=== PATIENT | male | born 1955 | race Caucasian/White ===

== ENCOUNTER 2022-12-02 14:31 | Outpatient (CLI) | payer MEDICARE, BC, SELFPAY ==
--- OUTSIDE RECORDS SUMMARY | 2022-12-02 14:33 | XMS_ITS | Patient Health Record ---
Author Name Unknown Organization [facility] Address [address] [place] [address] Care Team Providers Care Cloth Bolt Bander Name Role Phone PCP, Does Not Have a Primary Care Provider Mansi Reinoso Unavailable [phone] John Paul Sheehan Unavailable [phone] ALLERGIES Allergen (clinical drug ingredient) Drug/Non Drug Allergy documented on EMR Reaction Allergy Type Onset Date Status amoxicillin Amoxicillin hives Drug Allergy Act misha RESULTS Component Value Reference Range Notes COVID-19 Molecular Nucleic A jordyn Amplification Test (NAAT) Reviewed date:12/28/2021 10:37:58 AM Interpretation:Negative Performing Lab: Notes/Report: Negative COVID19 Negative COVID-19 RT- PCR Reviewed date:03/26/2022 10:30:05 AM Interpretation:Negative Performing Lab: Notes/Report: Negative COVID19 Negative COVID-19 RT- PCR Reviewed date:06/10/2022 11:14:31 AM Interpretation:Negative Performing Lab: Notes/Report: Negative COVID19 REASON FOR REFERRAL No Information MEDICATIONS Medication SIG (Take, Route, Fr equency, Duration) Notes Start Date End Date Status RABEprazole Sodium A ctive Atorvastatin Calcium Active SOCIAL HISTORY Tobacco Use: Social History Observation Description Date Details (start date - stop date) Never Smoker NA - NA Sex Assigned At : Social History Observation Description Sex Assigned At Unknown Tobacco Use/Smoking Question Answer Notes You are a nonsmoker VITAL SIGNS Heart Rate 67 /min 06/10/2022 Temperature 97.7 degrees Fahrenheit 06/10/2022 Respiratory Rate 18 /min 06/10/2022 Blood pressure diastolic 73 mm Hg 06/10/2022 Oximetry 99 % 06/10/2022 Height 67 in 06/10/2022 Blood pressure systolic 115 mm Hg 06/10/2022 Weight 160 lbs 06/10/2022 BMI 25.06 kg/m2 06/10/2022 Encounters Encounter Location Date Provider Diagnosis [address] [address] 12/28/2021 Mansi Solomon Encounter for laboratory testing for COVID-19 virus [address] [address] 03/26/2022 John Paul Sheehan Encounter for laboratory testing for COVID-19 virus Z20.822 and Acute URI J06.[address] [address] 06/10/2022 Mansi Solomon Encounter for laboratory testing for COVID-19 virus Z20.822 and Acute URI J06.9 ASSESSMENTS Encounter Date Diagnosis Assessment Notes Treatment Notes Treatment Clinical Notes 12/28/2021 Encounter for laboratory testing for COVID-19 virus (ICD-10 - Z20.822) 03/26/2022 Encounter for laboratory testing for COVID-19 virus (ICD-10 - Z20.822) Quarantine starts on the first day of symptom onset or on date of positive test if you are asymptomatic. Quarantine only ends if symptoms are improved, and you have had NO fever. A known COVID exposure is being within 6 feet of someone known to have COVID for at least 15 minutes. People with COVID may be contagious 48 hours before they get sick. Positive Results The virus was found in the nasal passage, and you are infected with COVID. You should: 1. Stay home except to get medical care. 2. Isolate yourself from other people for at least 5 days (check with your local [facility] for specific guidelines). 3. Mask for an additional 5 days when around others. If you have not had improving symptoms or are still experiencing a fever, quarantine for 7-10 days is recommended. 4. Monitor your symptoms and if you have any or these emergency warning signs for COVID get medical attention immediately: Trouble breathing Persistent pain or pressure in the chest New confusion or inability to arouse Bluish lips or face When your quarantine is complete:If you have access to antigen tests, you should consider using them. With two sequential negative tests 48 hours apart, you may remove your mask sooner than day 10. If your antigen test results are positive, you may still be infectious. You should continue wearing a mask and wait at least 48 hours before taking another test. Continue taking antigen tests at least 48 hours apart until you have two sequential negative results. This may mean you need to continue wearing a mask and testing beyond day 10. Negative Results: The virus was not found in your nose. A negative result means you probably were not infected at the time your sample was collected. However, that does not mean you will not get sick. It is possible that you were very early in your infection when your sample was collected and that you could test positive later. Or you could be exposed later and then develop the illness. This means you could still spread the virus. Please continue to wear a mask, hand wash, and continue social distancing. Please contact your provider if you have new or worsening symptoms. Even with a NEGATIVE COVID test, if you were exposed it is recommended to mask for 10 days around others and get tested if symptoms develop. 06/10/2022 Acute URI (ICD-10 - J06.9) You have been diagnosed with a viral upper respiratory infection. These infections do not respond to antibiotics and resolve with supportive care. You should drink plenty of fluids and rest at home until you start feeling better. You can take an usck-rus-qwaoifh pain reliever/fever advertising campaign manager as directed on the bottle. You can additionally take an hdjq-lbs-xotcqvy cough suppressant (dextromethorphan) for your symptoms as needed. Most viral infections last 5 to 10 days. You may return to the clinic for any worsening symptoms. See your primary care doctor for symptoms that do not resolve within 10 days. If you develop any severe symptoms, such as trouble breathing, please proceed to the Emergency Room. The patient has symptoms of a viral URI. The patient is not ill-appearing. There is no evidence of stridor, hypoxia, abnormal pulmonary exam. I considered influenza, mononucleosis, mastoiditis, pneumonia, GABHS, sinusitis, ENGINE MONITOR, retropharyngeal abscess, meningitis, otitis media and externa, orbital cellulitis and other bacterial infxs but the hx, exam & data did not support the diagnoses. Also considered epiglottitis and deep tissue infection of the neck but palpation of the neck along with range of motion and no laryngeal tenderness makes this unlikely, patient''s voice also normal making these tissue infections unlikely. The pt was advised that some dzs present atypically & the pt was given explicit DC instructions. The initial nonuse of antibiotics was discussed. 06/10/2022 Encounter for laboratory testing for COVID-19 virus (ICD-10 - Z20.822) 03/26/2022 Acute URI (ICD-10 - J06.9) You may take an xjzc-xek-hhwavae pain reliever/fever advertising campaign manager for any fever/pain. You can also take an ekeq-dqf-uindfcu cough suppressant as needed for cough if one has not been prescribed. Your provider can recommend specific medications based on your medical history if needed. Return to the clinic or schedule a virtual visit if you require additional medical attention. Pt educated on the nature of the condition. Pt has s/sx of viral URI. RT PCR performed 12/28/2021 Other Negative Results The virus was not found in your nose. A negative result means you probably were not infected at the time your sample was collected. However, that does not mean you will not get sick. It is possible that you were very early in your infection when your sample was collected and that you could test positive later. Or you could be exposed later and then develop illness. In other words, a negative test result does not mean you won't get sick later. This means you could still spread the virus. Please continue to wear a mask, hand wash, and continue social distancing. The current outpatient treatment for COVD is supportive care. Please contact our provider if you have new or worsening symptoms. Even with a NEGATIVE COVID test quarantine is recommended for some individuals: - If you have had COVID exposure with or without symptoms AND your COVID vaccination is not up to date; it is recommended to quarantine for 5 days and then mask for an additional 5 days when around others. - If you have had COVID exposure AND vaccination to COVID is up to date, it is recommended to mask for 10 days when around others, and if symptoms develop consider testing, and quarantine for 5 days. - If you have symptoms highly concerning for COVID (fever/productive cough/loss of taste and smell) regardless of an exposure; it is recommended to follow plan above for positive tests. Your provider will advise you if you have any concerning symptoms or not 06/10/2022 Other Quarantine starts on the first day of symptom onset or on date of positive test if you are asymptomatic. Quarantine only ends if symptoms are improved, and you have had NO fever. COVID vaccination status is up to date it you have received 2 doses of Pfizer/Moderna in the last 6 months, 1 dose of the J&J in the last 2 months, or 2 weeks after a booster of any kind. A COVID infection in the past 90 days is considered an immune equivalent to vaccination. A known COVID exposure is being within 6 feet of someone known to have COVID for at least 15 minutes. People with COVID may be contagious 48 hours before they get sick. Positive Results The virus was found in the nasal passage, and you are infected with COVID. You should: 1. Stay home except to get medical care. 2. Isolate yourself from other people for at least 5 days (check with your local [facility] for specific guidelines). 3. Mask for an additional 5 days when around others. If you have not had improving symptoms or are still experiencing a fever, quarantine for 7-10 days is recommended. 4. Monitor your symptoms and if you have any or these emergency warning signs for COVID get medical attention immediately: Trouble breathing Persistent pain or pressure in the chest New confusion or inability to arouse Bluish lips or face 5. Care for COVID is supportive (over the counter medications, rest, and hydration) for mild and moderate symptoms. Repeat testing for positives is NOT recommended by the CDC for up to 90 days. Negative Results The virus was not found in your nose. A negative result means you probably were not infected at the time your sample was collected. However, that does not mean you will not get sick. It is possible that you were very early in your infection when your sample was collected and that you could test positive later. Or you could be exposed later and then develop illness. In other words, a negative test result does not mean you won't get sick later. This means you could still spread the virus. Please continue to wear a mask, hand wash, and continue social distancing. The current outpatient treatment for COVD is supportive care. Please contact our provider if you have new or worsening symptoms. Even with a NEGATIVE COVID test quarantine is recommended for some individuals: - If you have had COVID exposure with or without symptoms AND your COVID vaccination is not up to date; it is recommended to quarantine for 5 days and then mask for an additional 5 days when around others. - If you have had COVID exposure AND vaccination to COVID is up to date, it is recommended to mask for 10 days when around others, and if symptoms develop consider testing, and quarantine for 5 days. - If you have symptoms highly concerning for COVID (fever/productive cough/loss of taste and smell) regardless of an exposure; it is recommended to follow plan above for positive tests. Your provider will advise you if you have any concerning symptoms or not PLAN OF TREATMENT No Information Insurance Providers Payer Name Payer Address Payer Phone Subscriber Number Group Number Insured Name Patient Relationship to Insured Coverage Start Date Coverage End Date MEDICARE [place] [address] [place] [phone] [id number] SONIDO SRIVASTAVA Self - patient is the insured MEDICAL (GENERAL) HISTORY Medical History History ICD Code GERD High cholesterol
== END 2022-12-02 14:32 | disposition home or self-care (01) ==
LOC: NFLDREF 14:31
PROVIDERS: PCP Family Medicine; Visit Provider Family Medicine
DX: U07.1 COVID-19 (principal)
CPT/HCPCS: 80048

== ENCOUNTER 2023-12-27 13:56 | Outpatient (CLI) | payer MEDICARE, BC, SELFPAY ==
--- OUTSIDE RECORDS SUMMARY | 2023-12-27 14:00 | XMS_ITS | Clinical Summary ---
Author Organization [facility] Address [place], [place] [address] Care Team Providers Care Preschool Teacher'S Assistant Name Role Phone Susan Thomas MD Primary Care Provider [phone] Allergies Active Allergy Reactions Criticality Noted Date Comments Amoxicillin-Pot Clavulanate Itching 01/18/20 13 Venlafaxine Anxiety 06/21/2016 worsened. caused poor decision making. Medications Medication Sig Dispensed Refills Start Date End Date Status atorvastatin (LIPITOR) 20 mg tablet Take 1 tablet by mouth once daily. 0 01/17/2013 Active RABEprazole (ACIPHEX) 20 mg tablet Take 1 tablet by mouth once daily. 0 01/17/2013 Active Active Problems Problem Noted Date Diagnosed Date Risk and functional assessment 09/20/2018 Immunizations Name Administration Dates Next Due COVID-19 vaccine ([email or web address] 30mcg/0.3mL) RACHNA Olivier 06/01/2020,05/11/2020 Family History Medical History Relation Name Comments Anxiety disorder Sister Relation Name Status Comments Sister Social History Tobacco Use Types Packs/Day Years Used Date Smoking Tobacco: Never Smokeless Tobacco: Never Tobacco Cessation:Counseling Given: Yes Alcohol Use Standard Drinks/Week Comments No 0 (1 standard drink = 0.6 oz pur e alcohol) PHQ-2 Answer Date Recorded PHQ-2 Score 1 09/13/2018 Sex and Gender Information Value Date Recorded Sex Assigned at Not on file Gender Identity Not on file Sexual Orientation Not on file Obstetrics History Last Filed Vital Signs Vital Sign Reading Time Taken Comments Blood Pressure 101/66 02/08/2018 1:31 PM RECRUITMENT AND OUTREACH ASSISTANT Pulse 69 02/08/2018 1:31 PM RECRUITMENT AND OUTREACH ASSISTANT Temperature 36.8 ??C (98.2 ??F) 05/14/2016 9:10 AM CS T Respiratory Rate - - Oxygen Saturation 100% 02/08/2018 1:31 PM RECRUITMENT AND OUTREACH ASSISTANT Inhaled Oxygen Concentration - - Weight 68.5 kg (151 lb) 06/21/2016 1:11 PM CDT Height 169.5 cm (5' 6.75) 06/21/2016 1:11 PM CD T Body Mass Index 23.83 06/21/2016 1:11 PM CDT Plan of Treatment Health Maintenance Due Date Last Done Comments Tdap 1966 Hepatitis C screening for age 18-79 1973 Tetanus booster 1975 Colonoscopy through age 75 01/22/2000 Lipids for age 45-75 01/22/2000 Zoster (shingles) series for age 50+ (1 of 2) 2005 BMI (ht and wt on same day) for age 18+ 06/21/2017 06/21/2016, 05/14/2016 Depression screening for age 12+ 06/07/2019 06/06/2018, 06/23/2016, 05/14/2016 Pneumococcal series for age 65+ (1 of 1 - PCV) 01/22/2020 COVID-19 vaccine series ( season) 2023 06/01/2020, 05/11/2020 Influenza for age 65+ 11/06/2023 Care Teams Preschool Teacher'S Assistant Relationship Specialty Start Date End Date Susan Thomas MD PCP - General Internal Medicine 01/17/13
== END 2023-12-27 13:57 | disposition home or self-care (01) ==
PROVIDERS: PCP Family Medicine; Visit Provider Family Medicine
DX: E78.5 Hyperlipidemia, unspecified (principal); M85.80 Other specified disorders of bone density and structure, unspecified site; F41.9 Anxiety disorder, unspecified; R94.4 Abnormal results of kidney function studies; K21.9 Gastro-esophageal reflux disease without esophagitis
CPT/HCPCS: 80053; 80061; 82306

== ENCOUNTER 2024-02-01 15:18 | Outpatient (CLI) | payer MEDICARE, BC, SELFPAY ==
--- OUTSIDE RECORDS SUMMARY | 2024-02-01 15:20 | XMS_ITS | Clinical Summary ---
Author Organization [facility] Address [place], [place] [address] Care Team Providers Care Die Trimmer Name Role Phone Susan Thomas MD Primary Care Provider [phone] Allergies Active Allergy Reactions Criticality Noted Date [...] Name Administration Dates Next Due COVID-19 vaccine ([employer] 30mcg/0.3mL) RACHNA Olivier 06/01/2020,05/11/2020 Family History Medical [...] Comments Blood Pressure 101/66 02/08/2018 1:31 PM CUSTOM TAILOR Pulse 69 02/08/2018 1:31 PM CUSTOM TAILOR Temperature 36.8 C (98.2 F) 05/14/2016 9:10 AM CUSTOM TAILOR Respiratory Rate - - Oxygen Saturation 100% 02/08/2018 1:31 PM CUSTOM TAILOR Inhaled Oxygen Concentration - - Weight 68.5 [...] 1 - PCV) 01/22/2020 COVID-19 vaccine series (2023- season) 2023 06/01/2020, 05/11/2020 Influenza for age 65+ 11/06/2023 Care Teams Die Trimmer Relationship Specialty Start Date End Date Susan Thomas MD PCP - General Internal Medicine 01/17/13
--- NOTE | 2024-02-01 15:30 | CRLHL7_ITS ---
For Patients: As a result of the Century Cures Act, medical imaging exams and procedure reports are released immediately into your electronic medical record. You may view this report before your referring provider. If you have questions, please contact your health care provider. DXA BONE MINERAL DENSITY STUDY Reason for exam: Osteopenia. Current height (in): 67. Weight (lb): 160. Menopause age: N/A. Ethnicity: White. 1. Have you had a previous hip or vertebral fracture? No. 2. Have you had any fractures during your adult life which did not result from significant trauma (e.g., auto accident)? No. 3. Did either of your parents have a hip fracture? No. 4. Do you smoke? No. 5. Have you ever taken Glucocorticoids? No. 6. Do you have rheumatoid arthritis? No. 7. Do you have secondary osteoporosis? No. 8. Do you drink 3 or more alcoholic drinks per day? No. 9. Are you being treated for osteoporosis? No. 10. Have you ever taken any of the following medications: Actonel, Evista, Fosamax, Miacalcin, Reclast, Boniva, Forteo, HRT (i.e., estrogen/hormone therapy), Protelos, Prolia, Vitamin D, Calcium, other ??? please specify. ANSWER: Yes, vitamin D and calcium. 11. Do you have any of the following medical conditions: Anorexia or bulimia, asthma or emphysema, end stage renal disease, hyperparathyroidism, any seizure disorders, cancer, inflammatory bowel diseases, hysterectomy, other ??? please specify. ANSWER: No. 12. What was your maximum height (inches)? 67. 13. Do you perform weight bearing exercise regularly? No. 14. Do you regularly consume dairy products? Yes. 15. Do you drink caffeinated beverages? Yes. TECHNIQUE: Bone mineral density study was performed using the [employer]. FINDINGS: The results of the study expressed as bone mineral density (BMD) are as follows: Lumbar spine L1 to L4: BMD: 1.147 g/cm2. T-score: 0.5. Z-score: 1.4 Neck Left: BMD: 0.831 g/cm2. T-score: -0.7. Z-score: 0.4 Right: BMD: 0.760 g/cm2. T-score: -1.3. Z-score: -0.1 Total Left: BMD: 0.963 g/cm2. T-score: -0.5. Z-score: 0.2 Right: BMD: 0.936 g/cm2. T-score: -0.6. Z-score: 0.0 IMPRESSION: Osteopenia. *Comparison exams done prior to 08/2019 were performed on different unit, [employer]. COMPARISON: Compared with scan of 09/25/2018, the bone mineral density has decreased by 3.6 percent at the spine and increased by 2.9 percent at the hip. FRAX 10-year Fracture Risk Major Osteoporotic Fracture: 5.8% Hip Fracture: 0.9% Reported Risk Factors: [place] () Neck BMD=0.760, BMI=25.1 Armando Escobar M.D. Diagnostic Radiologist [email or web address]/Dictated by: Armando Escobar MD @ 02/03/2024 12:28:00 PM (Electronically Signed)
== END 2024-02-01 15:19 | disposition home or self-care (01) ==
LOC: RAD 15:19
PROVIDERS: PCP Family Medicine; Visit Provider Family Medicine
DX: M85.80 Other specified disorders of bone density and structure, unspecified site (principal); M85.89 Other specified disorders of bone density and structure, multiple sites
CPT/HCPCS: 77080

== ENCOUNTER 2024-12-25 07:53 | Outpatient (CLI) | payer MEDICARE, BC, SELFPAY | END 2024-12-25 07:54 | disposition home or self-care (01) | LOC: NFLDREF 12-28 09:50 | PROVIDERS: PCP Family Medicine; Referring Provider Family Medicine; Visit Provider Family Medicine | DX: E78.5 Hyperlipidemia, unspecified (principal); M85.80 Other specified disorders of bone density and structure, unspecified site; R53.83 Other fatigue; R73.01 Impaired fasting glucose; Z79.899 Other long term (current) drug therapy | CPT/HCPCS: 80053; 80061; 82306 ==